=== PATIENT | male | born 1965 | race African-American/Black ===

== ENCOUNTER 2021-10-23 17:19 | Inpatient (IN) | payer OTHER ==
[2021-10-23] MEDS ORDERED: FAMOTIDINE 10 MG TABLET PO ONE (18:34)
[2021-10-23] MEDS ORDERED: MAG HYDROX/AL HYDROX/SIMETH 30 ML UNIT-DOSE CUP PO ONE (18:34)
[2021-10-23 19:34] LABS: BASO % 1.4 % (0-2.0); EOS % 1.3 % (0-4.5); HEMATOCRIT 42.2 % (35.4-49); HEMOGLOBIN 13.7 GM/dL (11.7-16.9); MCH 28.4 pg (25.7-33.7); MCHC 32.4 g/dl (32.0-35.9); MEAN CELL VOLUME 87.6 fl (80-96); MEAN PLT VOLUME 8.6 fl (7.5-11.1); MONO % 8.3 % (3.8-10.2); PLATELET COUNT 317 10^3/uL (134-434); RBC 4.82 M/mm3 (4.00-5.60); RDW 14.3 % (11.9-15.9); WHITE BLOOD COUNT 14.8 K/mm3 (4.0-10.0)
[2021-10-23 19:48] LABS: ACTIVATED PTT 30.4 SECONDS (25.2-36.5); INR 1.07 (0.83-1.09); PROTHROMBIN TIME (PATIENT) 12.3 SEC (9.7-13.0)
[2021-10-23 19:52] LABS: CHLORIDE 109 mmol/L (98-107); SODIUM 142 mmol/L (136-145)
[2021-10-23] MEDS ORDERED: FAMOTIDINE 10 MG TABLET ONE (19:52)
[2021-10-23] MEDS ORDERED: MAG HYDROX/AL HYDROX/SIMETH 30 ML UNIT-DOSE CUP ONE (19:52)
[2021-10-23 19:55] LABS: ALBUMIN 3.8 g/dl (3.4-5.0); ANION GAP 8 MMOL/L (8-16); BLOOD UREA NITROGEN 10.6 mg/dL (7-18); CO2 26 mmol/L (21-32); GLUCOSE,RANDOM 107 mg/dL (74-106)
[2021-10-23 19:58] LABS: CREATININE 1.2 mg/dL (0.55-1.3); SGOT/AST 19 U/L (15-37); SGPT/ALT 31 U/L (13-61)
[2021-10-23 20:00] LABS: BILIRUBIN,TOTAL 0.4 mg/dL (0.2-1); TOT PROT 7.6 g/dl (6.4-8.2)
[2021-10-23 20:03] LABS: ALK PHOS 95 U/L (45-117)
[2021-10-23] MEDS ORDERED: ACETAMINOPHEN 1000 MG/100 ML BAG IVPB ONE (21:02)
[2021-10-23 21:34] LABS: URINE APPEARANCE CLOUDY; URINE BILIRUBIN NEGATIVE (NEGATIVE); URINE COLOR YELLOW; URINE GLUCOSE (UA) NEGATIVE (NEGATIVE); URINE KETONE TRACE (NEGATIVE); URINE LEUK ESTERASE NEGATIVE (NEGATIVE); URINE NITRITE NEGATIVE (NEGATIVE); URINE PROTEIN TRACE (NEGATIVE); URINE UROBILINOGEN 0.2 mg/dL (0.2-1.0)
[2021-10-23 21:46] LABS: OPIATES, URI NEGATIVE (NEGATIVE)
[2021-10-23 21:47] LABS: COCAINE, UR NEGATIVE (NEGATIVE); METHADONE, UR NEGATIVE (NEGATIVE); URINE AMPHETAMINES NEGATIVE (NEGATIVE); URINE BENZODIAZEPINES NEGATIVE (NEGATIVE)
[2021-10-23] MEDS ORDERED: ACETAMINOPHEN INJECTION 100 ML IVPB ONE (21:51)
[2021-10-23 21:55] LABS: PHENCYCLIDINE,URINE NEGATIVE (NEGATIVE); URINE BARBITURATES NEGATIVE (NEGATIVE)
[2021-10-23] MEDS ORDERED: morphine CARPU-JECT 4 MG/1 ML DISP.SYRIN IVPUSH ONE (22:54)
[2021-10-23] MEDS ORDERED: PIPERACILLIN/TAZOB 3.375 GM 3.375 GM in DEXTROSE 5%-WATER - 50 ML IVPB ONE (22:55)
[2021-10-23] MEDS ORDERED: SODIUM CHLORIDE 0.9% 500 ML INFUS.BAG IV ONE (22:57)
[2021-10-23] MEDS ORDERED: morphine SULFATE 4 MG/ML VIAL ONE (23:00)
[2021-10-23] MEDS ORDERED: PIPERACILLIN/TAZOB 3.375 GM 3.375 GM/50 ML BAG IVPB ONE (23:01)
[2021-10-24 00:18] LABS: LIPASE 459 U/L (73-393)
[2021-10-24] MEDS: SODIUM CHLORIDE 1,000 ML IV SCH ×3 (02:12→17:25)
[2021-10-24 05:23] VITALS: BMI 34.4
[2021-10-24] MEDS ORDERED: CEFTRIAXONE 1 GM in DEXTROSE 5%-WATER - 50 ML IVPB ONE (06:00)
[2021-10-24] MEDS ORDERED: DEXTROSE 5%-WATER - 50 ML IVPB ONE (06:24)
[2021-10-24] MEDS ORDERED: cefTRIAXone SODIUM 1 GM VIAL ONE (06:24)
[2021-10-24] MEDS: INSULIN SLIDING SCALE (NOVOLOG) 1 VIAL SQ SCH ×4 (07:36→21:13)
[2021-10-24 10:25] LABS: BASO % 0.7 % (0-2.0); EOS % 1.6 % (0-4.5); HEMATOCRIT 38.5 % (35.4-49); HEMOGLOBIN 12.5 GM/dL (11.7-16.9); LYMPH % 27.8 % (8-40); MCH 28.7 pg (25.7-33.7); MCHC 32.5 g/dl (32.0-35.9); MEAN CELL VOLUME 88.4 fl (80-96); MEAN PLT VOLUME 8.6 fl (7.5-11.1); MONO % 9.7 % (3.8-10.2); NEUT % 60.2 % (42.8-82.8); PLATELET COUNT 283 10^3/uL (134-434); RBC 4.36 M/mm3 (4.00-5.60); RDW 14.5 % (11.9-15.9); WHITE BLOOD COUNT 11.2 K/mm3 (4.0-10.0)
[2021-10-24 10:46] LABS: CALCIUM 8.8 mg/dL (8.5-10.1)
[2021-10-24 10:47] LABS: ALBUMIN 3.5 g/dl (3.4-5.0); BLOOD UREA NITROGEN 9.8 mg/dL (7-18); MAGNESIUM 2.3 mg/dL (1.8-2.4)
[2021-10-24 10:50] LABS: CREATININE 1.2 mg/dL (0.55-1.3); PHOSPHOROUS 3.6 mg/dL (2.5-4.9)
[2021-10-24 10:51] LABS: BILIRUBIN,TOTAL 0.5 mg/dL (0.2-1); TOT PROT 6.7 g/dl (6.4-8.2)
[2021-10-24] MEDS: ENOXAPARIN NA (PORCINE) 40 MG/0.4 ML DISP.SYRIN SQ SCH (11:14)
[2021-10-24] MEDS ORDERED: GLYCERIN 1 RECTAL SUPPOSITORY, ADULT RC ONE (12:00)
[2021-10-24] MEDS ORDERED: CEFTRIAXONE 1,000 MG in DEXTROSE 5%-WATER - 50 ML IVPB ONE (13:18)
[2021-10-24] MEDS: ACETAMINOPHEN 1000 MG/100 ML BAG IVPB PRN ×2 (13:52→21:10)
[2021-10-24] MEDS: MIRTAZAPINE 15 MG TABLET (FP) PO SCH (21:11)
[2021-10-25] MEDS: ONDANSETRON 4 MG/2 ML VIAL IVPUSH PRN (04:03)
[2021-10-25] MEDS: INSULIN SLIDING SCALE (NOVOLOG) 1 VIAL SQ SCH ×4 (06:19→21:28)
[2021-10-25] MEDS ORDERED: cefTRIAXone SODIUM 1 GM VIAL ONE (09:15)
[2021-10-25] MEDS ORDERED: DEXTROSE 5%-WATER - 50 ML IVPB ONE (09:15)
[2021-10-25] MEDS: ENOXAPARIN NA (PORCINE) 40 MG/0.4 ML DISP.SYRIN SQ SCH (09:24)
[2021-10-25] MEDS: CEFTRIAXONE 1 GM in DEXTROSE 5%-WATER - 50 ML IVPB SCH (09:24)
[2021-10-25 12:40] LABS: BASO % 0.9 % (0-2.0); EOS % 2.6 % (0-4.5); HEMATOCRIT 37.9 % (35.4-49); HEMOGLOBIN 12.4 GM/dL (11.7-16.9); LYMPH % 27.5 % (8-40); MCH 28.9 pg (25.7-33.7); MCHC 32.8 g/dl (32.0-35.9); MEAN PLT VOLUME 8.7 fl (7.5-11.1); PLATELET COUNT 286 10^3/uL (134-434); WHITE BLOOD COUNT 9.1 K/mm3 (4.0-10.0)
[2021-10-25 12:57] LABS: ALBUMIN 3.4 g/dl (3.4-5.0); BLOOD UREA NITROGEN 4.3 mg/dL (7-18); CALCIUM 8.4 mg/dL (8.5-10.1)
[2021-10-25 13:01] LABS: BILIRUBIN,TOTAL 0.6 mg/dL (0.2-1); PHOSPHOROUS 3.1 mg/dL (2.5-4.9); TOT PROT 6.5 g/dl (6.4-8.2)
[2021-10-25] MEDS: ACETAMINOPHEN 1000 MG/100 ML BAG IVPB PRN (17:34)
[2021-10-25] MEDS ORDERED: IBUPROFEN 400 MG TABLET (FP) PO ONE (18:14)
[2021-10-25] MEDS: amLODIPine BESYLATE 10 MG TABLET (FP) PO SCH (18:21)
[2021-10-25] MEDS: LOSARTAN POTASSIUM 25 MG TABLET PO SCH (18:21)
[2021-10-25] MEDS: SODIUM CHLORIDE 1,000 ML IV SCH (21:29)
[2021-10-25] MEDS: MELATONIN 5 MG TABLETS PO PRN (21:30)
[2021-10-25] MEDS: MIRTAZAPINE 15 MG TABLET (FP) PO SCH (21:30)
[2021-10-26] MEDS: ACETAMINOPHEN 1000 MG/100 ML BAG IVPB PRN ×3 (05:39→21:36)
[2021-10-26] MEDS: SODIUM CHLORIDE 1,000 ML IV SCH ×2 (05:40→09:06)
[2021-10-26] MEDS: INSULIN SLIDING SCALE (NOVOLOG) 1 VIAL SQ SCH ×4 (06:09→21:33)
[2021-10-26] MEDS ORDERED: cefTRIAXone SODIUM 1 GM VIAL ONE (08:35)
[2021-10-26] MEDS ORDERED: DEXTROSE 5%-WATER - 50 ML IVPB ONE (08:35)
[2021-10-26] MEDS: CEFTRIAXONE 1 GM in DEXTROSE 5%-WATER - 50 ML IVPB SCH (09:07)
[2021-10-26] MEDS: ENOXAPARIN NA (PORCINE) 40 MG/0.4 ML DISP.SYRIN SQ SCH (09:07)
[2021-10-26] MEDS: traMADol HCL 50 MG TABLET PO PRN ×2 (11:55→18:07)
[2021-10-26] MEDS: LACTOBACILLUS ACIDOPHILUS 1 TABLET PO SCH (11:55)
[2021-10-26 12:23] LABS: HEMATOCRIT 41.2 % (35.4-49); HEMOGLOBIN 13.7 GM/dL (11.7-16.9); MCH 29.1 pg (25.7-33.7); MCHC 33.3 g/dl (32.0-35.9); MEAN CELL VOLUME 87.2 fl (80-96); MEAN PLT VOLUME 8.1 fl (7.5-11.1); PLATELET COUNT 279 10^3/uL (134-434); RBC 4.73 M/mm3 (4.00-5.60); RDW 14.6 % (11.9-15.9); WHITE BLOOD COUNT 10.5 K/mm3 (4.0-10.0)
[2021-10-26 12:53] LABS: BLOOD UREA NITROGEN 4.2 mg/dL (7-18)
[2021-10-26 12:54] LABS: ALBUMIN 3.7 g/dl (3.4-5.0)
[2021-10-26 12:56] LABS: PHOSPHOROUS 3.1 mg/dL (2.5-4.9)
[2021-10-26 12:58] LABS: BILIRUBIN,TOTAL 0.4 mg/dL (0.2-1); TOT PROT 7.2 g/dl (6.4-8.2)
[2021-10-26] MEDS: BANATROL PLUS POWDER PACKET PO SCH ×2 (14:45→22:00)
[2021-10-26] MEDS ORDERED: LOSARTAN POTASSIUM 25 MG TABLET PO SCH (17:31)
[2021-10-26] MEDS: LOSARTAN POTASSIUM 25 MG TABLET PO SCH ×2 (18:05→18:12)
[2021-10-26] MEDS: amLODIPine BESYLATE 10 MG TABLET (FP) PO SCH ×2 (18:05→18:12)
[2021-10-26] MEDS: MELATONIN 5 MG TABLETS PO PRN (21:33)
[2021-10-26] MEDS: MIRTAZAPINE 15 MG TABLET (FP) PO SCH (21:33)
[2021-10-27] MEDS: SODIUM CHLORIDE 1,000 ML IV SCH ×3 (01:06→09:56)
[2021-10-27] MEDS: traMADol HCL 50 MG TABLET PO PRN ×3 (05:39→21:14)
[2021-10-27] MEDS: BANATROL PLUS POWDER PACKET PO SCH ×3 (05:40→21:15)
[2021-10-27] MEDS: INSULIN SLIDING SCALE (NOVOLOG) 1 VIAL SQ SCH ×4 (06:00→21:15)
[2021-10-27] MEDS ORDERED: DEXTROSE 5%-WATER - 50 ML IVPB ONE (09:50)
[2021-10-27] MEDS ORDERED: cefTRIAXone SODIUM 1 GM VIAL ONE (09:50)
[2021-10-27] MEDS: CEFTRIAXONE 1 GM in DEXTROSE 5%-WATER - 50 ML IVPB SCH (09:53)
[2021-10-27] MEDS: LACTOBACILLUS ACIDOPHILUS 1 TABLET PO SCH (09:53)
[2021-10-27] MEDS: amLODIPine BESYLATE 10 MG TABLET (FP) PO SCH (09:53)
[2021-10-27] MEDS: LOSARTAN POTASSIUM 25 MG TABLET PO SCH (09:53)
[2021-10-27] MEDS: ENOXAPARIN NA (PORCINE) 40 MG/0.4 ML DISP.SYRIN SQ SCH (09:54)
[2021-10-27] MEDS ORDERED: INSULIN (NOVOLOG) ASPART 100 UNITS/ML 10ML VIAL ONE (10:40)
[2021-10-27 10:47] LABS: HEMATOCRIT 39.7 % (35.4-49); HEMOGLOBIN 13.1 GM/dL (11.7-16.9); MCH 28.8 pg (25.7-33.7); MEAN CELL VOLUME 87.2 fl (80-96); MEAN PLT VOLUME 8.7 fl (7.5-11.1); PLATELET COUNT 296 10^3/uL (134-434); RBC 4.56 M/mm3 (4.00-5.60); RDW 14.2 % (11.9-15.9); WHITE BLOOD COUNT 9.8 K/mm3 (4.0-10.0)
[2021-10-27 11:13] LABS: CALCIUM 8.9 mg/dL (8.5-10.1)
[2021-10-27 11:14] LABS: ALBUMIN 3.4 g/dl (3.4-5.0); BLOOD UREA NITROGEN 3.8 mg/dL (7-18); MAGNESIUM 1.9 mg/dL (1.8-2.4)
[2021-10-27 11:16] LABS: BILIRUBIN,TOTAL 0.4 mg/dL (0.2-1); TOT PROT 6.6 g/dl (6.4-8.2)
[2021-10-27 11:17] LABS: PHOSPHOROUS 3.3 mg/dL (2.5-4.9)
[2021-10-27] MEDS: ACETAMINOPHEN 1000 MG/100 ML BAG IVPB PRN (14:48)
[2021-10-27] MEDS ORDERED: ACETAMINOPHEN 1000 MG/100 ML BAG IVPB PRN (17:51)
[2021-10-27] MEDS: ONDANSETRON 4 MG/2 ML VIAL IVPUSH PRN (21:14)
[2021-10-27] MEDS: MIRTAZAPINE 15 MG TABLET (FP) PO SCH (21:14)
[2021-10-28] MEDS: PSYLLIUM 5.85 GM PACKET PO SCH ×3 (01:26→21:43)
[2021-10-28] MEDS: SODIUM CHLORIDE 1,000 ML IV SCH ×2 (01:27→08:15)
[2021-10-28] MEDS: INSULIN SLIDING SCALE (NOVOLOG) 1 VIAL SQ SCH ×4 (06:25→21:41)
[2021-10-28] MEDS: BANATROL PLUS POWDER PACKET PO SCH ×3 (06:25→21:40)
[2021-10-28 09:16] LABS: HEMATOCRIT 39.4 % (35.4-49); HEMOGLOBIN 13.5 GM/dL (11.7-16.9); MCH 29.6 pg (25.7-33.7); MCHC 34.2 g/dl (32.0-35.9); MEAN CELL VOLUME 86.5 fl (80-96); MEAN PLT VOLUME 7.9 fl (7.5-11.1); PLATELET COUNT 280 10^3/uL (134-434); RBC 4.56 M/mm3 (4.00-5.60); RDW 14.4 % (11.9-15.9); WHITE BLOOD COUNT 9.7 K/mm3 (4.0-10.0)
[2021-10-28] MEDS ORDERED: DEXTROSE 5%-WATER - 50 ML IVPB ONE (09:17)
[2021-10-28] MEDS ORDERED: cefTRIAXone SODIUM 1 GM VIAL ONE (09:17)
[2021-10-28] MEDS: CEFTRIAXONE 1 GM in DEXTROSE 5%-WATER - 50 ML IVPB SCH (09:21)
[2021-10-28] MEDS: amLODIPine BESYLATE 10 MG TABLET (FP) PO SCH (09:23)
[2021-10-28] MEDS: ENOXAPARIN NA (PORCINE) 40 MG/0.4 ML DISP.SYRIN SQ SCH (09:23)
[2021-10-28] MEDS: LOSARTAN POTASSIUM 25 MG TABLET PO SCH (09:23)
[2021-10-28] MEDS: LACTOBACILLUS ACIDOPHILUS 1 TABLET PO SCH (09:23)
[2021-10-28 09:32] LABS: CHLORIDE 110 mmol/L (98-107); SODIUM 140 mmol/L (136-145)
[2021-10-28 09:34] LABS: ANION GAP 5 MMOL/L (8-16); CALCIUM 8.8 mg/dL (8.5-10.1); CO2 25 mmol/L (21-32); GLUCOSE,RANDOM 94 mg/dL (74-106)
[2021-10-28 09:43] LABS: BLOOD UREA NITROGEN 2.7 mg/dL (7-18)
[2021-10-28] MEDS: D5-NS + 20 MEQ KCL - 20 MEQ/1,000 ML INFUS.BAG IV SCH (10:03)
[2021-10-28] MEDS: MIRTAZAPINE 15 MG TABLET (FP) PO SCH (21:43)
[2021-10-28] MEDS: traMADol HCL 50 MG TABLET PO PRN (21:46)
[2021-10-29] MEDS: BANATROL PLUS POWDER PACKET PO SCH ×2 (06:05→13:44)
[2021-10-29] MEDS: INSULIN SLIDING SCALE (NOVOLOG) 1 VIAL SQ SCH ×2 (06:19→11:46)
[2021-10-29] MEDS ORDERED: DEXTROSE 5%-WATER - 50 ML IVPB ONE (08:48)
[2021-10-29] MEDS ORDERED: cefTRIAXone SODIUM 1 GM VIAL ONE (08:48)
[2021-10-29 09:04] LABS: HEMATOCRIT 39.7 % (35.4-49); HEMOGLOBIN 12.9 GM/dL (11.7-16.9); MCH 28.4 pg (25.7-33.7); MCHC 32.5 g/dl (32.0-35.9); MEAN CELL VOLUME 87.5 fl (80-96); MEAN PLT VOLUME 8.3 fl (7.5-11.1); PLATELET COUNT 299 10^3/uL (134-434); RBC 4.54 M/mm3 (4.00-5.60); RDW 14.4 % (11.9-15.9); WHITE BLOOD COUNT 12.2 K/mm3 (4.0-10.0)
[2021-10-29 09:19] VITALS: BP 117/77; PULSE 81; TEMP 98.8
[2021-10-29 09:20] LABS: CALCIUM 8.8 mg/dL (8.5-10.1)
[2021-10-29] MEDS: D5-NS + 20 MEQ KCL - 20 MEQ/1,000 ML INFUS.BAG IV SCH (09:20)
[2021-10-29 09:21] LABS: BLOOD UREA NITROGEN 4.3 mg/dL (7-18); MAGNESIUM 1.9 mg/dL (1.8-2.4)
[2021-10-29] MEDS: CEFTRIAXONE 1 GM in DEXTROSE 5%-WATER - 50 ML IVPB SCH (09:21)
[2021-10-29] MEDS: LACTOBACILLUS ACIDOPHILUS 1 TABLET PO SCH (09:23)
[2021-10-29] MEDS: amLODIPine BESYLATE 10 MG TABLET (FP) PO SCH (09:23)
[2021-10-29] MEDS: ENOXAPARIN NA (PORCINE) 40 MG/0.4 ML DISP.SYRIN SQ SCH (09:23)
[2021-10-29] MEDS: LOSARTAN POTASSIUM 25 MG TABLET PO SCH (09:23)
[2021-10-29] MEDS: PSYLLIUM 5.85 GM PACKET PO SCH (09:23)
[2021-10-29 09:24] LABS: CREATININE 1.1 mg/dL (0.55-1.3); PHOSPHOROUS 3.2 mg/dL (2.5-4.9)
[2021-10-29] MEDS ORDERED: INSULIN (NOVOLOG) ASPART 100 UNITS/ML 10ML VIAL ONE (11:25)
== END 2021-10-29 17:29 | disposition home or self-care (01) | DRG 249 ==
LOC: JER 17:19 → JERBED 23:56 → J6S 10-24 02:48
PROVIDERS: ADMIT Internal Medicine; ATTEND Internal Medicine
DX: K52.9 Noninfective gastroenteritis and colitis, unspecified (principal); R45.851 Suicidal ideations; F32.A Depression, unspecified; I10 Essential (primary) hypertension; E11.9 Type 2 diabetes mellitus without complications; J44.9 Chronic obstructive pulmonary disease, unspecified; G47.33 Obstructive sleep apnea (adult) (pediatric); G47.00 Insomnia, unspecified; Z86.16 Personal history of COVID-19
CPT/HCPCS: 36415; 71045-TC-FY; 74177-TC; 76700-TC; 80048; 80053; 80061; 80307; 81003; 82550; 82962; 83036; 83690; 83735; 84100; 84443; 84478; 84484; 85025; 85027; 85610; 85730; 86140; 87045; 87046; 87086; 87205; 87207; 87324; 87328; 87329; 87425; 87449; 87798; 93005; 93010; 99285-25; C9803; Q9967; U0003; U0005

== ENCOUNTER 2024-11-01 04:27 | Observation (INO) | payer OTHER ==
[2024-11-01 04:39] VITALS: BMI 33.3
[2024-11-01] MEDS ORDERED: ASPIRIN 81 MG CHEWABLE TABLETS ONE (04:40)
[2024-11-01] MEDS: ASPIRIN 325 MG TABLET PO ONE (04:43)
[2024-11-01] MEDS ORDERED: ACETAMINOPHEN INJECTION 100 ML ONE ×2 (05:04→16:18)
[2024-11-01 05:17] LABS: INR 0.91 (0.83-1.09); PROTHROMBIN TIME (PATIENT) 9.9 SEC (9.7-13.0)
[2024-11-01 05:20] LABS: ACTIVATED PTT 26.6 SECONDS (25.2-36.5)
[2024-11-01] MEDS: ACETAMINOPHEN 1000 MG/100 ML BAG IVPB ONE ×2 (05:21→16:37)
[2024-11-01 05:30] LABS: POTASSIUM 3.7 mmol/L (3.5-5.1)
[2024-11-01 05:31] LABS: BASO % 1.1 % (0-2.0); EOS % 3.7 % (0-4.5); HEMOGLOBIN 14.5 GM/dL (11.7-16.9); LYMPH % 22.6 % (8-40); MCH 28.9 pg (25.7-33.7); MEAN CELL VOLUME 87.8 fl (80-96); MEAN PLT VOLUME 8.5 fl (7.5-11.1); MONO % 7.2 % (3.8-10.2); NEUT % 65.4 % (42.8-82.8); PLATELET COUNT 282 10^3/uL (134-434); RBC 5.02 M/mm3 (4.00-5.60); RDW 15.3 % (11.9-15.9); WHITE BLOOD COUNT 14.3 K/mm3 (4.0-10.0)
[2024-11-01 05:39] LABS: ALBUMIN 3.9 g/dl (3.4-5.0); CREATININE 1.1 mg/dL (0.55-1.3); MAGNESIUM 1.9 mg/dL (1.8-2.4)
[2024-11-01 05:40] LABS: TOT PROT 7.2 g/dl (6.4-8.2)
[2024-11-01 05:43] LABS: N-TERMINAL BNP 88.2 pg/ml (5-125)
[2024-11-01] MEDS ORDERED: FAMOTIDINE 20 MG/50 ML IVPB 20 MG/50 ML MG IVPB ONE (05:50)
[2024-11-01] MEDS: FAMOTIDINE 20 MG/50 ML IVPB 20 MG/50 ML MG IVPB ONE (05:55)
[2024-11-01] MEDS ORDERED: MAG HYDROX/AL HYDROX/SIMETH 30 ML UNIT-DOSE CUP ONE (06:24)
[2024-11-01] MEDS: MAG HYDROX/AL HYDROX/SIMETH 30 ML UNIT-DOSE CUP PO ONE (06:32)
[2024-11-01] MEDS: LACTATED RINGERS SOLUTION 1000 ML INFUS.BAG IV ONE (06:32)
[2024-11-01] MEDS ORDERED: METOCLOPRAMIDE HCL INJECTION 10 MG/2 ML VIAL ONE (06:43)
[2024-11-01] MEDS: METOCLOPRAMIDE HCL INJECTION 10 MG/2 ML VIAL IVPB ONE (07:01)
[2024-11-01 07:02] LABS: BILIRUBIN,TOTAL 0.7 mg/dL (0.2-1)
[2024-11-01 08:30] LABS: URINE APPEARANCE CLEAR; URINE BILIRUBIN NEGATIVE (NEGATIVE); URINE COLOR YELLOW; URINE GLUCOSE (UA) NEGATIVE (NEGATIVE); URINE KETONE NEGATIVE (NEGATIVE); URINE LEUK ESTERASE NEGATIVE (NEGATIVE); URINE NITRITE NEGATIVE (NEGATIVE); URINE PROTEIN NEGATIVE (NEGATIVE); URINE UROBILINOGEN 0.2 mg/dL (0.2-1.0)
[2024-11-01] MEDS: SODIUM CHLORIDE 0.9% 500 ML INFUS.BAG IV ONE (08:41)
[2024-11-01] MEDS ORDERED: SACUBITRIL/VALSARTAN 24 MG-26 MG TABLET PO SCH (11:15)
[2024-11-01] MEDS ORDERED: ENOXAPARIN NA (PORCINE) 40 MG/0.4 ML DISP.SYRIN SQ ONE (11:22)
[2024-11-01] MEDS ORDERED: metoPROLOL SUCCINATE 25 MG TAB.SR.24H (FP) PO ONE (11:22)
[2024-11-01] MEDS: metoPROLOL SUCCINATE 25 MG TAB.SR.24H (FP) PO SCH (11:33)
[2024-11-01] MEDS: INSULIN ASPART SLIDING SCALE (NOVOLOG) 1 VIAL SQ SCH (11:33)
[2024-11-01] MEDS: amLODIPine BESYLATE 10 MG TABLET (FP) PO SCH (11:33)
[2024-11-01] MEDS: ENOXAPARIN NA (PORCINE) 40 MG/0.4 ML DISP.SYRIN SQ SCH (11:33)
[2024-11-01] MEDS: BUDESONIDE/FORMETEROL FUMARATE 160/4.5 mcg INHALER IH SCH (12:25)
[2024-11-01] MEDS: SACUBITRIL/VALSARTAN 24 MG-26 MG TABLET PO SCH (12:26)
[2024-11-01] MEDS ORDERED: ACETAMINOPHEN 325 MG TABLET (FP) ONE (22:22)
[2024-11-02] MEDS ORDERED: SACUBITRIL/VALSARTAN 24 MG-26 MG TABLET ONE ×2 (00:25→10:24)
[2024-11-02] MEDS: FINASTERIDE 5 MG TABLET (FP) PO SCH (00:27)
[2024-11-02] MEDS: ATORVASTATIN CA 40 MG TABLET (FP) PO SCH (00:27)
[2024-11-02] MEDS: TAMSULOSIN HCL 0.4 MG CAP PO SCH (00:27)
[2024-11-02] MEDS ORDERED: ZOLPIDEM TARTRATE 5 MG TABLET ONE (00:35)
[2024-11-02] MEDS ORDERED: ATORVASTATIN CA 40 MG TABLET (FP) ONE (00:35)
[2024-11-02] MEDS ORDERED: TAMSULOSIN HCL 0.4 MG CAP ONE (00:36)
[2024-11-02] MEDS: ACETAMINOPHEN 325 MG TABLET (FP) PO PRN (00:44)
[2024-11-02] MEDS: ZOLPIDEM TARTRATE 5 MG TABLET PO PRN (00:44)
[2024-11-02 07:20] LABS: BASO % 0.9 % (0-2.0); HEMATOCRIT 43.4 % (35.4-49); HEMOGLOBIN 14.1 GM/dL (11.7-16.9); LYMPH % 21.4 % (8-40); MCH 28.7 pg (25.7-33.7); MCHC 32.5 g/dl (32.0-35.9); MEAN CELL VOLUME 88.5 fl (80-96); MEAN PLT VOLUME 8.4 fl (7.5-11.1); MONO % 7.7 % (3.8-10.2); PLATELET COUNT 258 10^3/uL (134-434); RBC 4.91 M/mm3 (4.00-5.60); RDW 15.3 % (11.9-15.9); WHITE BLOOD COUNT 11.9 K/mm3 (4.0-10.0)
[2024-11-02 07:34] LABS: POTASSIUM 4.1 mmol/L (3.5-5.1)
[2024-11-02 07:39] LABS: BLOOD UREA NITROGEN 10.6 mg/dL (7-18); CALCIUM 8.9 mg/dL (8.5-10.1)
[2024-11-02 07:43] LABS: CREATININE 0.9 mg/dL (0.55-1.3); PHOSPHOROUS 3.6 mg/dL (2.5-4.9)
[2024-11-02] MEDS ORDERED: ACETAMINOPHEN 325 MG TABLET (FP) ONE (08:04)
[2024-11-02] MEDS ORDERED: amLODIPine BESYLATE 10 MG TABLET (FP) ONE (10:23)
[2024-11-02] MEDS ORDERED: metoPROLOL SUCCINATE 25 MG TAB.SR.24H (FP) PO ONE (10:23)
[2024-11-02] MEDS ORDERED: ENOXAPARIN NA (PORCINE) 40 MG/0.4 ML DISP.SYRIN SQ ONE (10:24)
[2024-11-02] MEDS ORDERED: ASPIRIN 81 MG CHEWABLE TABLETS ONE (10:24)
[2024-11-02] MEDS: ASPIRIN 81 MG CHEWABLE TABLETS PO SCH (10:32)
[2024-11-02] MEDS ORDERED: INSULIN ASPART SLIDING SCALE (NOVOLOG) 1 VIAL SQ ONE (12:32)
[2024-11-02] MEDS ORDERED: traMADol HCL 50 MG TABLET ONE (15:24)
[2024-11-02] MEDS: traMADol HCL 50 MG TABLET PO PRN (15:26)
[2024-11-03] MEDS: IBUPROFEN 600 MG TABLET (FP) PO ONE (03:28)
[2024-11-03] MEDS: LIDOCAINE 4% PATCH TP ONE (03:48)
[2024-11-03] MEDS ORDERED: REGADENOSON 0.4 MG/5 ML PRE-FILLED SYRINGE IVPUSH ONE (10:43)
[2024-11-03] MEDS: REGADENOSON 0.4 MG/5 ML PRE-FILLED SYRINGE IVPUSH ONE (11:20)
[2024-11-03] MEDS ORDERED: ACETAMINOPHEN 325 MG TABLET (FP) PO PRN (13:58)
[2024-11-03] MEDS: ACETAMINOPHEN 325 MG TABLET (FP) PO PRN (14:26)
[2024-11-03] MEDS: oxyCODONE HCL 5 MG TABLET PO PRN (14:27)
[2024-11-03] MEDS: LIDOCAINE PATCH REMOVAL MC ONE (14:37)
[2024-11-04 07:38] LABS: BASO % 0.9 % (0-2.0); EOS % 5.5 % (0-4.5); HEMATOCRIT 40.5 % (35.4-49); HEMOGLOBIN 13.1 GM/dL (11.7-16.9); LYMPH % 21.5 % (8-40); MCH 28.7 pg (25.7-33.7); MCHC 32.5 g/dl (32.0-35.9); MEAN CELL VOLUME 88.4 fl (80-96); MEAN PLT VOLUME 8.2 fl (7.5-11.1); NEUT % 63.1 % (42.8-82.8); PLATELET COUNT 261 10^3/uL (134-434); RBC 4.58 M/mm3 (4.00-5.60); RDW 15.5 % (11.9-15.9); WHITE BLOOD COUNT 10.1 K/mm3 (4.0-10.0)
[2024-11-04 07:56] LABS: POTASSIUM 3.8 mmol/L (3.5-5.1)
[2024-11-04 08:21] LABS: ALBUMIN 3.3 g/dl (3.4-5.0); BLOOD UREA NITROGEN 14.7 mg/dL (7-18)
[2024-11-04 08:22] LABS: BILIRUBIN,TOTAL 0.9 mg/dL (0.2-1); MAGNESIUM 1.9 mg/dL (1.8-2.4); TOT PROT 6.2 g/dl (6.4-8.2)
[2024-11-04 08:23] LABS: CALCIUM 9.1 mg/dL (8.5-10.1)
[2024-11-04] MEDS: SACUBITRIL/VALSARTAN 49 MG-51 MG TABLET PO SCH (09:33)
[2024-11-04] MEDS: metoPROLOL SUCCINATE 25 MG TAB.SR.24H (FP) PO SCH (09:33)
[2024-11-04] MEDS ORDERED: MECLIZINE HCL 25 MG TABLET (FP) PO PRN (11:51)
[2024-11-04] MEDS ORDERED: MECLIZINE HCL 25 MG TABLET (FP) PO SCH (14:07)
[2024-11-04] MEDS: MECLIZINE HCL 25 MG TABLET (FP) PO SCH (15:30)
[2024-11-04] MEDS: ZOLPIDEM TARTRATE 5 MG TABLET PO ONE (23:07)
[2024-11-05 07:29] LABS: BASO % 0.7 % (0-2.0); HEMATOCRIT 40.4 % (35.4-49); HEMOGLOBIN 13.2 GM/dL (11.7-16.9); LYMPH % 25.5 % (8-40); MCH 28.7 pg (25.7-33.7); MCHC 32.6 g/dl (32.0-35.9); MEAN CELL VOLUME 88.2 fl (80-96); MEAN PLT VOLUME 8.2 fl (7.5-11.1); MONO % 8.5 % (3.8-10.2); NEUT % 59.3 % (42.8-82.8); PLATELET COUNT 272 10^3/uL (134-434); RBC 4.58 M/mm3 (4.00-5.60); RDW 15.1 % (11.9-15.9); WHITE BLOOD COUNT 9.4 K/mm3 (4.0-10.0)
[2024-11-05 07:48] LABS: POTASSIUM 3.8 mmol/L (3.5-5.1)
[2024-11-05 07:52] LABS: BLOOD UREA NITROGEN 11.3 mg/dL (7-18); CALCIUM 8.7 mg/dL (8.5-10.1)
[2024-11-05 07:53] LABS: ALBUMIN 3.3 g/dl (3.4-5.0); MAGNESIUM 1.8 mg/dL (1.8-2.4)
[2024-11-05 07:57] LABS: BILIRUBIN,TOTAL 0.8 mg/dL (0.2-1); TOT PROT 6.3 g/dl (6.4-8.2)
[2024-11-05] MEDS: MECLIZINE HCL 25 MG TABLET (FP) PO SCH (11:56)
[2024-11-05] MEDS: FLUTICASONE PROP 0.05% 16 GM NASAL SPRAY NS ONE (13:08)
[2024-11-05 14:30] VITALS: RESP 18
[2024-11-05] MEDS: ALBUTEROL SO4 2.5/IPRATROPIUM 0.5 INH SOL 3 ML VIAL.NEB. NEB PRN (15:23)
[2024-11-05] MEDS: ZOLPIDEM TARTRATE 5 MG TABLET PO ONE (21:42)
[2024-11-06] MEDS: FLUTICASONE PROP 0.05% 16 GM NASAL SPRAY NS SCH (09:22)
[2024-11-06] MEDS ORDERED: MECLIZINE HCL 25 MG TABLET (FP) PO PRN (11:13)
[2024-11-06 11:21] LABS: BASO % 0.7 % (0-2.0); EOS % 5.8 % (0-4.5); HEMATOCRIT 40.9 % (35.4-49); HEMOGLOBIN 13.3 GM/dL (11.7-16.9); MCH 28.7 pg (25.7-33.7); MCHC 32.4 g/dl (32.0-35.9); MEAN CELL VOLUME 88.7 fl (80-96); MEAN PLT VOLUME 8.5 fl (7.5-11.1); MONO % 9.5 % (3.8-10.2); PLATELET COUNT 264 10^3/uL (134-434); RBC 4.61 M/mm3 (4.00-5.60); RDW 15.3 % (11.9-15.9); WHITE BLOOD COUNT 8.5 K/mm3 (4.0-10.0)
[2024-11-06 11:29] LABS: POTASSIUM 3.7 mmol/L (3.5-5.1)
[2024-11-06 11:35] LABS: CALCIUM 8.7 mg/dL (8.5-10.1)
[2024-11-06 11:37] LABS: ALBUMIN 3.2 g/dl (3.4-5.0); BLOOD UREA NITROGEN 10.4 mg/dL (7-18); MAGNESIUM 1.9 mg/dL (1.8-2.4)
[2024-11-06 11:40] LABS: BILIRUBIN,TOTAL 0.6 mg/dL (0.2-1); TOT PROT 6.1 g/dl (6.4-8.2)
[2024-11-06 15:47] VITALS: BP 149/82; PULSE 72; TEMP 97.5
== END 2024-11-06 15:13 | disposition home health service (06) ==
LOC: JER 04:27 → JERBED 05:54 → J4W 11-02 20:09
PROVIDERS: ADMIT Student in an Organized Health Care Education/Training Program; ATTEND Internal Medicine
PROC: 3E033NZ Introduction of Analgesics, Hypnotics, Sedatives into Peripheral Vein, Percutaneous Approach (ICD-10-PCS; principal; 2024-11-01)
PROC: 3E0F7GC Introduction of Other Therapeutic Substance into Respiratory Tract, Via Natural or Artificial Opening (ICD-10-PCS; 2024-11-01)
PROC: 3E013VG Introduction of Insulin into Subcutaneous Tissue, Percutaneous Approach (ICD-10-PCS; 2024-11-01)
PROC: 3E0337Z Introduction of Electrolytic and Water Balance Substance into Peripheral Vein, Percutaneous Approach (ICD-10-PCS; 2024-11-01)
PROC: 3E033GC Introduction of Other Therapeutic Substance into Peripheral Vein, Percutaneous Approach (ICD-10-PCS; 2024-11-01)
DX: H81.10 Benign paroxysmal vertigo, unspecified ear (principal); R00.0 Tachycardia, unspecified; I11.0 Hypertensive heart disease with heart failure; D72.829 Elevated white blood cell count, unspecified; E11.9 Type 2 diabetes mellitus without complications; G47.33 Obstructive sleep apnea (adult) (pediatric); F41.8 Other specified anxiety disorders; N40.0 Benign prostatic hyperplasia without lower urinary tract symptoms; Z86.16 Personal history of COVID-19; Z99.81 Dependence on supplemental oxygen
CPT/HCPCS: 0241U-QW; 36415; 70450-TC; 71045-TC-FY; 78452-TC; 80048; 80053; 80061; 81003; 82962; 83036; 83690; 83735; 83880; 84100; 84443; 84484; 85025; 85610; 85730; 86682; 87086; 93005; 93010; 93017; 93306-TC; 94640; 94660; 96365; 96372; 96375; 96376; 97116-GP; 97162-GP; 99285-25; A9502; G0378; J0131; J2785